=== PATIENT | female | born 1945 | race Caucasian/White ===

== ENCOUNTER → 2016-05-01 16:48 | Outpatient (CLI) | payer MEDICARE | END | disposition home or self-care (01) | LOC: D.MAMMO 11:30 | DX: Z12.31 Encounter for screening mammogram for malignant neoplasm of breast (principal) ==

== ENCOUNTER → 2017-06-05 17:25 | Outpatient (CLI) | payer MEDICARE | END | disposition home or self-care (01) | LOC: D.MAMMO 11:00 | DX: Z12.31 Encounter for screening mammogram for malignant neoplasm of breast (principal) ==

== ENCOUNTER 2018-08-08 09:00 | Outpatient (CLI) | payer MEDICARE | END 2018-08-08 10:00 | disposition home or self-care (01) | LOC: D.MAMMO 09:00 | PROVIDERS: ATTEND Family Medicine | DX: Z12.31 Encounter for screening mammogram for malignant neoplasm of breast (principal) ==

== ENCOUNTER 2019-10-06 08:00 | Outpatient (CLI) | payer MEDICARE | END 2019-10-06 14:14 | disposition home or self-care (01) | LOC: D.MAMMO 08:00 | PROVIDERS: ATTEND Family Medicine | DX: Z12.31 Encounter for screening mammogram for malignant neoplasm of breast (principal) ==

== ENCOUNTER → 2020-05-31 11:18 | Outpatient (CLI) | payer MEDICARE ==
[~2020-05-31 11:18] MED LIST: DEXAMETHASONE2 MG PO; LIPITOR10 MG PO; MELATONIN 3 MG1 TAB PO; MIRALAX17 GM PO; MOBIC7.5 MG PO; MUCINEX600 MG PO; OMNICEF300 MG PO; SYMBICORT 16010.2 GM INH; TESSALON PERLE100 MG PO; VENTOLIN HFA [SP8 GM INH; VITAMIN C PO; VITAMIN D325 MC1 PO; ZINC-220220 MG PO; ZITHROMAX250 MG PO; ZYLOPRIM100 MG
== END | disposition home or self-care (01) ==
LOC: D.RT 11:00
PROVIDERS: ATTEND Internal Medicine Pulmonary Disease
DX: R06.00 Dyspnea, unspecified (principal)